=== PATIENT | female | born 1950 | race Caucasian/White ===

== ENCOUNTER 2016-10-08 12:56 | Emergency (ER) | payer OTHER ==
[~2016-10-08] VITALS: Ht 165.1 cm; Wt 51.4 kg
[~2016-10-08 12:56] MED LIST: ALPR.25 PO; ARIM1TAB PO; ASPI81 PO; CALC500 PO; FLUO-1 PO; HYDR-3580 PO; METH750T2 PO; NEUR400C PO; NORC10TA2 PO; OMEP20CA5 PO; RIVA10 PO; VENTAER INH
[2016-10-08 13:02] VITALS: BP 185/91; PULSE 84; RESP 16; TEMP 98.3; O2SAT 97
[2016-10-08] MEDS ORDERED: BUSP5TAB PO (13:31)
[2016-10-08] MEDS ORDERED: GABA400C5 PO (13:31)
[2016-10-08] MEDS ORDERED: OMEP20TA PO (13:31)
[2016-10-08] MEDS ORDERED: MELO-1 PO (13:31)
[2016-10-08] MEDS ORDERED: ROBA750T PO (13:31)
[2016-10-08] MEDS ORDERED: ATOR40TA16 PO (13:31)
[2016-10-08] MEDS ORDERED: ASPI81CH37 CHEW (13:31)
[2016-10-08] MEDS ORDERED: HYDR-3366 PO (13:31)
[2016-10-08] MEDS ORDERED: ESCI5TAB PO (13:31)
[2016-10-08] MEDS ORDERED: LEXA10TA PO (13:31)
[2016-10-08] MEDS ORDERED: ANAS1TAB PO (13:31)
[2016-10-08] MEDS ORDERED: SODIUM CHLORIDE 0.9% FLUSH 10 ML FLUSH IVF PRN (14:15)
[2016-10-08] MEDS ORDERED: MECLIZINE HCL 25 MG TAB PO ONE (14:15)
[2016-10-08] MEDS ORDERED: SODIUM CHLOR 0.9% 1000 ML INJ 1,000 ML IV ONE (14:15)
[2016-10-08] MEDS ORDERED: LORazepam 2 MG/ML VIAL IV PUSH ONE (14:15)
--- NOTE | 2016-10-08 14:28 | PD ---
HPI Chief Complaint: Dizziness Time Seen by Provider: 13:43 Travel History International Travel<30 days: No Contact w/Intl Traveler<30days: No Traveled to known affect area: No History of Present Illness HPI Patient is a 66-year-old female with history of degenerative disc disease, fibromyalgia, chronic fatigue, depression, hyperlipidemia, hypertension who was sent to the emergency room by her primary care doctor, Dr. Alarcon for evaluation of dizzyness. Patient reports that for the past 3 weeks, she has been having intermittent symptoms of dizziness. Patient reports that symptoms would come and go, reports that since yesterday, her dizziness has been persistent. Patient reports that nothing makes her symptoms better or worse, reports that she can't describe her dizziness but feels unsteady on her feet. Patient reports that sometimes she feels nauseous with this, reports that she does not feel nauseous at this time. Denies any vision changes. Denies vision changes. Denies chest pain or shortness of breath. Patient reports that she did have symptoms on Friday as well, reports that she ignored them as she had a house full of people over for [facility]. Patient reports that she did not see her primary care doctor today, reports that she put a phone call to them and was instructed to come straight to the emergency room. Patient with no history of vertigo in the past. PFSH Past Medical History Arthritis: Yes Asthma: Yes (MILD) Autoimmune Disease: No Blood Disorders: No Anxiety: Yes Depression: Yes Heart Rhythm Problems: No Cancer: Yes Cardiovascular Problems: Yes (MITRAL VALVE PROLAPSE) High Cholesterol: Yes Chest Pain: No Congestive Heart Failure: No COPD: No Cerebrovascular Accident: No Diabetes: No Diminished Hearing: No Endocrine: No Fibromyalgia: Yes Gastrointestinal Disorders: Yes GERD: Yes Glaucoma: No Genitourinary: No Headaches: Yes Hepatitis: No Hiatal Hernia: Yes Hypertension: Yes Immune Disorder: Yes (FIBROMYALGIA) Kidney Stones: No Musculoskeletal: Yes (/NECK/BACK/ARTHRITIS) Neurologic: Yes (fibromyalgia) Psychiatric: Yes Reproductive: No Respiratory: Yes Immunizations Current: No Migraines: No Myocardial Infarction: No Radiation Therapy: No Renal Failure: No Seizures: No Sickle Cell Disease: No Sleep Apnea: No Thyroid Disease: No Ulcer: No Tetanus Vaccination: Unknown Influenza Vaccination: Yes PNEUMOCCOCAL Vaccine (Year): 2 ?: Not Menopausal: Yes : 4 Para: 4 Past Surgical History Abdominal Surgery: Yes (INCISIONAL HERNIA REP. ) AICD: No Appendectomy: Yes (1985) Arteriovenous Shunt: No Cardiac Surgery: No Section: Yes (X 3) Cholecystectomy: Yes ( 2003--) Ear Surgery: No Endocrine Surgery: No Eye Surgery: No Genitourinary Surgery: No Gynecologic Surgery: Yes (HYSTERECTOMY, X 3 ) Hysterectomy: Yes (1985) Insulin Pump: No Joint Replacement: No Mastectomy: Yes (BILAT) Neurologic Surgery: Yes (BACK SURGERY most recent 04/03 L3-4, L4-5 fusion) Oral Surgery: No Pacemaker: No Thoracic Surgery: No Other Surgery: No Social History Alcohol Use: No Tobacco Use: No (STOPPED 1995) Substance Use: No Allergies-Medications (Allergen,Severity, Reaction): Coded Allergies: Penicillin (Verified Allergy, Severe, HIVES, 10/08/16) Reported Meds & Prescriptions Reported Meds & Active Scripts Active Meclizine (Meclizine HCl) 25 Mg Chew 25 Mg CHEW TID Reported Escitalopram (Escitalopram Oxalate) 5 Mg Tab 5 Mg PO DAILY Buspirone (Buspirone HCl) 5 Mg Tab 5 Mg PO BID Lexapro (Escitalopram Oxalate) 10 Mg Tab 10 Mg PO DAILY Meloxicam 15 Mg Tab 15 Mg PO DAILY Aspirin Low Dose (Aspirin) 81 Mg Chew 81 Mg CHEW DAILY Omeprazole 20 Mg Tab 20 Mg PO BID Atorvastatin (Atorvastatin Calcium) 40 Mg Tab 40 Mg PO HS Gabapentin 400 Mg Cap 400 Cap PO HS Anastrozole 1 Mg Tab 1 Mg PO DAILY Robaxin (Methocarbamol) 750 Mg Tab 750 Mg PO QID [place] (Hydrocodone-Acetaminophen) 10-325 Mg Tab 1 Tab PO Q6H PRN Review of Systems General / Constitutional: No: Fever Eyes: No: Visual changes HENT: Positive: Vertigo, Lightheadedness, No: Headaches Cardiovascular: No: Chest Pain or Discomfort Respiratory: No: Shortness of Breath Gastrointestinal: No: Abdominal Pain Genitourinary: No: Dysuria Musculoskeletal: No: Pain Skin: No Rash Neurologic: Positive: Dizziness, No: Weakness, Headache Psychiatric: No: Depression Endocrine: No: Polydipsia Hematologic/Lymphatic: No: Easy Bruising Physical Exam Narrative GENERAL: Mild distress SKIN: Focused skin assessment warm/dry. HEAD: Atraumatic. Normocephalic. EYES: Pupils equal and round. No scleral icterus. No injection or drainage. Patient with horizontal nystagmus on exam ENT: No nasal bleeding or discharge. Mucous membranes pink and moist. NECK: Trachea midline. No JVD. CARDIOVASCULAR: Regular rate and rhythm. No murmur appreciated. RESPIRATORY: No accessory muscle use. Clear to auscultation. Breath sounds equal bilaterally. GASTROINTESTINAL: Abdomen soft, non-tender, nondistended. Hepatic and splenic margins not palpable. MUSCULOSKELETAL: No obvious deformities. No clubbing. No cyanosis. No edema. NEUROLOGICAL: Awake and alert. No obvious cranial nerve deficits. Motor grossly within normal limits. Normal speech. Cranial nerves 2- 12 grossly intact with no neurological deficits. PSYCHIATRIC: Appropriate mood and affect; insight and judgment normal. Data Data Last Documented VS Vital Signs Date Time Temp Pulse Resp B/P Pulse Ox O2 Delivery O2 Flow Rate FiO2 10/08/16 13:02 98.3 84 16 185/91 97 Orders Electrocardiogram (10/08/16 14:07) Prothrombin Time / Inr (Pt) (10/08/16 14:07) Act Partial Throm Time (Ptt) (10/08/16 14:07) Complete Blood Count With Diff (10/08/16 14:07) Comprehensive Metabolic Panel (10/08/16 14:07) Urinalysis - C+S If Indicated (10/08/16 14:07) Ct Brain W/O Iv Contrast(Rout) (10/08/16 14:07) Ecg Monitoring (10/08/16 14:07) Iv Access Insert/Monitor (10/08/16 14:07) Sodium Chloride 0.9% Flush (Ns Flush) (10/08/16 14:15) Meclizine (Antivert) (10/08/16 14:15) Lorazepam Inj (Ativan Inj) (10/08/16 14:15) Sodium Chlor 0.9% 1000 Ml Inj (Ns 1000 M (10/08/16 14:15) Labs Laboratory Tests Test 10/08/16 10/08/16 14:50 14:55 Urine Color STRAW Urine Turbidity CLEAR Urine pH 6.0 Urine Specific [place] 1.002 Urine Protein NEG mg/dL Urine Glucose (UA) NEG mg/dL Urine Ketones NEG mg/dL Urine Occult Blood TRACE Urine Nitrite NEG Urine Bilirubin NEG Urine Leukocyte Esterase NEG Urine Squamous Epithelial 0-5 /hpf Cells Microscopic Urinalysis Comment CATH-CULT NOT IND White Blood Count 7.6 TH/MM3 Red Blood Count 4.55 MIL/MM3 Hemoglobin 12.4 GM/DL Hematocrit 37.9 % Mean Corpuscular Volume 83.3 FL Mean Corpuscular Hemoglobin 27.2 PG Mean Corpuscular Hemoglobin 32.6 % Concent Red Cell Distribution Width 16.5 % Platelet Count 258 TH/MM3 Mean Platelet Volume 8.0 FL Neutrophils (%) (Auto) 53.6 % Lymphocytes (%) (Auto) 33.9 % Monocytes (%) (Auto) 10.5 % Eosinophils (%) (Auto) 0.9 % Basophils (%) (Auto) 1.1 % Neutrophils # (Auto) 4.0 TH/MM3 Lymphocytes # (Auto) 2.6 TH/MM3 Monocytes # (Auto) 0.8 TH/MM3 Eosinophils # (Auto) 0.1 TH/MM3 Basophils # (Auto) 0.1 TH/MM3 CBC Comment DIFF FINAL Differential Comment Prothrombin Time 10.5 SEC Prothromb Time International 1.0 RATIO Ratio Activated Partial 24.4 SEC Thromboplast Time Sodium Level 135 MEQ/L Potassium Level 3.7 MEQ/L Chloride Level 97 MEQ/L Carbon Dioxide Level 30.0 MEQ/L Anion Gap 8 MEQ/L Blood Urea Nitrogen 12 MG/DL Creatinine 0.73 MG/DL Estimat Glomerular Filtration 80 ML/MIN Rate Random Glucose 76 MG/DL Calcium Level 9.1 MG/DL Total Bilirubin 0.6 MG/DL Aspartate Amino Transf 29 U/L (AST/SGOT) Alanine Aminotransferase 35 U/L (ALT/SGPT) Alkaline Phosphatase 64 U/L Total Protein 7.3 GM/DL Albumin 3.9 GM/DL [facility] Medical Decision Making Medical Screen Exam Complete: Yes Emergency Medical Condition: Yes Interpretation(s) EKG at 1413: Normal sinus rhythm at 60 bpm, QT/QTc 436/436, no acute ST or T- wave changes Vital Signs Date Time Temp Pulse Resp B/P Pulse Ox O2 Delivery O2 Flow Rate FiO2 10/08/16 13:02 98.3 84 16 185/91 97 Differential Diagnosis Vertigo, vertebrobasilar insufficiency, CVA, TIA, dehydration, electrolyte abnormality Narrative Course Patient is a 66-year-old female who presents to emergency room with complaints of dizziness. She reports that she has been having intermittent dizziness for the past 3 weeks, reports that it is very hard for describe her dizziness, reports that when she is symptomatic, she usually ignores her symptoms and they eventually resolve. Patient reports that symptoms could not be ignored as they have been continuous since yesterday. Patient was told to come to the emergency room by her primary care doctor today. Overall, patient has been on exam. Patient with no neurological deficits at this time, she does have some horizontal nystagmus. CT head ordered for further evaluation of symptoms along with lab work. Plan to treat her vertiginous symptoms with Ativan and Antivert. We'll reevaluate after medications given. CBC & BMP Diagram 10/08/16 14:[address] 10/08/16 1407 Signed Impressions: Service Date/Time: Saturday, October 08, 2016 14:18 - CONCLUSION: No acute disease. No significant change has occurred. No evidence of acute infarct, hemorrhage, mass or edema. Gaston Holcomb MD reviewed all labs and studies with patient, will have patient follow up with pcp and will have her return to ER as needed Diagnosis Primary Impression: Dizziness Referrals: Zoie Arcos MD Patient Instructions: General Instructions Additional Instructions: Please follow-up with the primary care doctor Please return to emergency room as needed Please follow-up with neurologist Med/Other Pt SpecificInfo: Prescription(s) given Scripts Meclizine 25 Mg Chew25 Mg CHEW TID #20 TAB Ref 0 Prov:Hodan Lezama DO 10/08/16 Disposition: 01 DISCHARGE HOME Condition: Stable Hodan Lezama DO Oct 08, 2016 14:28
--- NOTE | 2016-10-08 14:37 | RADHPO ---
EXAM DATE/TIME: 10/08/2016 14:18 [place] COMPARISON: CT BRAIN W/O CONTRAST, November 04, 2015, 10:53. INDICATIONS : Dizziness. RADIATION DOSE: 60.81 CTDIvol (mGy) MEDICAL HISTORY : Hypertension. SURGICAL HISTORY : Hysterectomy. ENCOUNTER: Initial ACUITY: 1 day PAIN SCALE: 0/10 LOCATION: cranial TECHNIQUE: Multiple contiguous axial images were obtained of the head. Using automated exposure control and adj ustment of the mA and/or kV according to patient size, radiation dose was kept as low as reasonably a chievable to obtain optimal diagnostic quality images. FINDINGS: CEREBRUM: The ventricles are normal for age. No evidence of midline shift, mass lesion, hemorrhage or acute in farction. No extra-axial fluid collections are seen. POSTERIOR FOSSA: The cerebellum and brainstem are intact. The 4th ventricle is midline. The cerebellopontine angle i s unremarkable. EXTRACRANIAL: The visualized portion of the orbits is intact. SKULL: The calvaria is intact. No evidence of skull fracture. CONCLUSION: No acute disease. No significant change has occurred. No evidence of acute infarct, hemorrhage, mass or edema. Gaston Holcomb MD on October 08, 2016 at 14:34 Board Certified Radiologist. This report was verified electronically.
[2016-10-08 15:16] LABS: BASOPHIL # 0.1 TH/MM3 (0-0.2); BASOPHIL % 1.1 % (0.0-2.0); EOSINOPHIL # 0.1 TH/MM3 (0-0.4); EOSINOPHIL % 0.9 % (0.0-4.0); HEMATOCRIT 37.9 % (35.0-46.0); HEMO FLAGS DIFF FINAL; LYMPH % 33.9 % (9.0-44.0); LYMPHOCYTE # 2.6 TH/MM3 (1.0-4.8); MEAN CELL VOLUME 83.3 FL (80.0-100.0); MEAN CORPUSCULAR HEMOGLOBIN 27.2 PG (27.0-34.0); MEAN CORPUSCULAR HGB CONC 32.6 % (32.0-36.0); MONO % 10.5 % (0.0-8.0); NEUT % 53.6 % (16.0-70.0); PLATELET COUNT 258 TH/MM3 (150-450); RED BLOOD COUNT 4.55 MIL/MM3 (4.00-5.30); RED CELL DISTRIBUTION WIDTH 16.5 % (11.6-17.2); WHITE BLOOD COUNT 7.6 TH/MM3 (4.0-11.0)
[2016-10-08 15:20] LABS: BLOOD, URINE TRACE (NEG); GLUCOSE,URINE NEG (NEG); KETONE, URINE NEG (NEG); NITRITE,URINE NEG (NEG)
[2016-10-08 15:24] LABS: URINE COLOR STRAW (YELLW/STRAW)
[2016-10-08 15:24] LABS: CHLORIDE 97 MEQ/L (98-107); POTASSIUM 3.7 MEQ/L (3.5-5.1); SODIUM (NA) 135 MEQ/L (136-145)
[2016-10-08 15:25] LABS: COMMENT (UR) CATH-CULT NOT IND; CULTURE IF INDICATED CATH CULTURE NOT IND; SQUAMOUS EPITHELIAL CELL URINE 0-5 /hpf (0-5)
[2016-10-08 15:28] LABS: APTT (PATIENT) 24.4 SEC (24.3-30.1); PROTHROMBIN TIME - PATIENT 10.5 SEC (9.8-11.6)
[2016-10-08 15:29] LABS: ANION GAP 8 MEQ/L (5-15); BLOOD UREA NITROGEN 12 MG/DL (7-18)
[2016-10-08 15:32] LABS: ALT (GPT) 35 U/L (10-53); AST (GOT) 29 U/L (15-37); GLOMERULAR FILTRATION RATE 80 ML/MIN (>89)
[2016-10-08 15:33] LABS: TOTAL BILIRUBIN ADULT 0.6 MG/DL (0.2-1.0)
[2016-10-08 15:35] LABS: ALKALINE PHOSPHATASE 64 U/L (45-117)
[2016-10-08] MEDS ORDERED: MECL25CH CHEW (15:54)
[2016-10-08 16:09] VITALS: BP 174/80; PULSE 61; RESP 14; O2SAT 98
--- NOTE | 2016-10-08 23:36 | EKG ---
Date Performed: 10/08/2016 Time Performed: 14:13:06 PTAGE: 66 years EKG: Sinus rhythm Possible left anterior fascicular block rSr'(V1) - probable normal variant Borderline ECG PREVIOUS TRACING : 11/04/2015 12.21 Compared to prior tracing no significant change DOCTOR: Mike Kearney Interpretating Date/Time 10/08/2016 23:35:51
== END 2016-10-08 17:08 | disposition home or self-care (01) ==
LOC: PHED 12:56
DX: R42 Dizziness and giddiness (principal); J45.909 Unspecified asthma, uncomplicated; E78.00 Pure hypercholesterolemia, unspecified; M79.7 Fibromyalgia; I10 Essential (primary) hypertension; K21.9 Gastro-esophageal reflux disease without esophagitis; I34.1 Nonrheumatic mitral (valve) prolapse; R94.31 Abnormal electrocardiogram [ECG] [EKG]; Z87.891 Personal history of nicotine dependence
CPT/HCPCS: 70450; 80053; 81001; 85025; 85610; 85730; 93005; 96361; 96374; 99284; J2060; J7030

== ENCOUNTER 2017-11-16 13:28 | Emergency (ER) | payer OTHER ==
[~2017-11-16] VITALS: Ht 165.1 cm; Wt 54.0 kg
[~2017-11-16 13:28] MED LIST changes: -ALPR.25 PO; +ANAS1TAB PO; -ARIM1TAB PO; -ASPI81 PO; +ASPI81CH6 CHEW; +ATOR40TA16 PO; +BUSP5TAB PO; -CALC500 PO; +ESCI5TAB PO; -FLUO-1 PO; +GABA400C5 PO; +HYDR-3366 PO; -HYDR-3580 PO; +LEXA10TA PO; +MECL25CH CHEW; +MELO15TA20 PO; -METH750T2 PO; -NEUR400C PO; -NORC10TA2 PO; -OMEP20CA5 PO; +OMEP20TA93 PO; -RIVA10 PO; +ROBA750T PO; -VENTAER INH
[2017-11-16 13:37] VITALS: BP 180/84; PULSE 58; RESP 14; TEMP 98.4; O2SAT 96
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
[2017-11-16] MEDS ORDERED: CALC1TAB87 PO (14:16)
[2017-11-16] MEDS ORDERED: VITA2000 PO (14:16)
[2017-11-16] MEDS ORDERED: VITA100021 SL (14:16)
[2017-11-16] MEDS ORDERED: VITA250T3 PO (14:16)
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
== END 2017-11-16 14:56 | disposition home or self-care (01) ==
LOC: PHEFT 13:28
DX: M54.2 Cervicalgia (principal); R51 Headache; M19.90 Unspecified osteoarthritis, unspecified site; J45.909 Unspecified asthma, uncomplicated; E78.00 Pure hypercholesterolemia, unspecified; M79.7 Fibromyalgia; K21.9 Gastro-esophageal reflux disease without esophagitis; I10 Essential (primary) hypertension; V43.52XA Car driver injured in collision with other type car in traffic accident, initial encounter
CPT/HCPCS: 70450; 72125; 99283